=== PATIENT | male | born 2000 | race Caucasian/White ===

== ENCOUNTER 2023-11-21 01:36 | Emergency (ER) | payer SELFPAY ==
[~2023-11-21] VITALS: Ht 188 cm; Wt 110.0 kg
[2023-11-21 01:44] VITALS: O2SAT 97
[2023-11-21 03:48] LABS: BASOPHILS % 0.6 % (0.0-2.0); EOSINOPHILS % 2.9 % (0.0-5.0); HEMATOCRIT. 52.5 % (42.0-52.0); HEMOGLOBIN. 18.1 g/dL (14.0-18.0); LYMPHOCYTES % 30.9 % (20.0-50.0); MEAN CORPUSCULAR HEMOGLOBIN 32.1 pg (28.0-32.0); MEAN CORPUSCULAR HGB CONC 34.4 g/dL (31.0-37.0); MEAN CORPUSCULAR VOLUME 93.2 fL (80.0-94.0); MEAN PLATELET VOLUME 6.6 fl (7.4-10.4); MONOCYTES % 8.4 % (2.0-8.0); NEUTROPHILS % 57.2 % (40.0-76.0); PLATELET 420 x1000/uL (130-400); RED BLOOD CELL COUNT 5.63 mill/uL (4.7-6.1); RED CELL DISTRIBUTION WIDTH 13.9 % (11.6-14.6); WHITE BLOOD COUNT 13.7 x1000/uL (4.5-11.0)
[2023-11-21 04:28] LABS: CHLORIDE 105 mEq/L (98-107); POTASSIUM 3.5 mEq/L (3.5-5.1); SODIUM 137 mEq/L (136-145)
[2023-11-21 04:30] LABS: CARBON DIOXIDE 24 mEq/L (21-32)
[2023-11-21 04:31] LABS: CALCIUM 10.2 mg/dL (8.7-10.4)
[2023-11-21 04:36] LABS: ETHANOL BLOOD < 10 mg/dL (<10); GLUCOSE 93 mg/dL (70-105); UREA NITROGEN BLOOD 7 mg/dL (9-23)
[2023-11-21 04:38] LABS: ALANINE AMINOTRANSFERASE 35 IU/L (10-49); ALBUMIN 5.1 g/dL (3.2-4.8); ASPARTATE AMINOTRANSFERASE 17 IU/L (<34); BILIRUBIN DIRECT 0.3 mg/dL (<=3.0); BILIRUBIN TOTAL 0.8 mg/dL (0.1-1.0); PROTEIN TOTAL 7.9 g/dL (6.0-8.3)
[2023-11-21 05:48] VITALS: BP 119/88; PULSE 91; RESP 18; TEMP 36.83628; O2SAT 99
[2023-11-21 06:17] LABS: TROPONIN I HIGH SENSITIVITY < 4 ng/L (3.0-53)
[2023-11-21 06:18] VITALS: TEMP 98.3
[2023-11-21] MEDS: ACETAMINOPHEN 325MG TABLET PO ONE (06:18)
[2023-11-21] MEDS ORDERED: TOPUD PO (06:32)
== END 2023-11-21 06:50 | disposition home or self-care (01) ==
LOC: ER 01:36
DX: R51.9 Headache, unspecified (principal); F12.10 Cannabis abuse, uncomplicated
CPT/HCPCS: 80076; 80048; 80320; 83690; 85025; 84484; 36415; 71045; 93005; 99285; Z7610; G0480